=== PATIENT | female | born 1970 | race Caucasian/White ===

== ENCOUNTER → 2016-07-26 | Outpatient (CLI) | payer MEDICAID ==
[~2016-07-26] MED LIST: ADVIL DPS200 MG PO; ALBUTEROL2.5 MG/3 M IH; ASPIR-LOW81 MG PO; ASPIRIN EC81 MG PO; FUROSEMIDE80 MG PO; GABAPENTIN400 MG PO; KLONOPIN DPS1 MG PO; KLONOPIN2 MG PO; KLOR-CON M2020 MEQ PO; LAMICTAL DPS25 MG PO; LASIX DPS80 MG PO; MAALOX DPS30 ML PO; MAGNESIUM250 MG PO; MICRO-K DPS10 MEQ PO; MONTELUKAST SOD10 MG PO; NEURONTIN DPS300 MG PO; NORCO 5-325 TA1 EACH PO; PROAIR HFA8.5 GM IH; PROVENTIL HFA6.7 GM IH; REQUIP DPS0.5 MG PO; SINEQUAN DPS100 MG PO; SURFAK240 MG PO; SYMBICORT160 MCG/6 IH; SYNTHROID25 MCG PO; TOPAMAX50 MG PO; TYLENOL DPS325 MG PO; TYLENOL-DPS650 MG PR; TYLENOL325 MG PO; ZOFRAN ODT4 MG PO; ZOLOFT DPS100 MG PO; ZOLOFT100 MG PO
== END | disposition home or self-care (01) ==
LOC: RAD.S 09:30
DX: R05 Cough (principal); K21.9 Gastro-esophageal reflux disease without esophagitis

== ENCOUNTER 2016-07-29 14:21 | Emergency (ER) | payer MEDICAID ==
[~2016-07-29 14:21] MED LIST changes: -KLONOPIN DPS1 MG PO; -LAMICTAL DPS25 MG PO; -MONTELUKAST SOD10 MG PO; -REQUIP DPS0.5 MG PO
--- NOTE | 2016-08-05 16:05 | ER ---
ADMIT: 07/29/2016 RM/LOC: ER [facility] MR#: [id number] [address] [address] ACE JORDI [place], [place] [id number] Emergency Room Report SEX: F AGE: 46 : 1970 DATE: 07/29/2016 HISTORY OF PRESENT ILLNESS: The patient came in with the ambulance. Apparently, she fell, hit head at home in her bathroom. She comes in a bit lethargic. She says this is not a normal epilepsy attack. She has COPD as well but she does not think that is related to it. She is talking less but goes into a period where she is acting like she is not recognizing people. Her vitals within normal limits. Head, no trauma seen. Eyes exam is PERRLA. She even tries to resist me opening her eyes. Ears are patent. She is very slow and confused. Respirations, in no distress. She is an obese female. Abdomen nontender. Back nontender. Skin good color and atraumatic. ORDERS: CBC; white count of 10.7. Potassium of 3.3. UA negative. Toxicology negative. TSH 2.420. Labs are good. IV fluids improve her stay in the ER. I did order CT scan of the head which was read by Dr. Rodriguez as negative. I did order EKG but the patient left before the EKG could be done on her. CLINICAL IMPRESSION: Syncopal episode, in which patient did not have any arrhythmia while she was in the monitor here. When her mother walked out, she was able to communicate with us. Once mother comes in, she refers all her communication to the mother. She walked out of the ER. Her blood pressure at time of discharge was 130/86, heart rate 76, respirations 18, temp is 98.1, O2 sats 99% with Joe scale coma of 15. FLACA Taylor / Curt Maya MD / modl JOB #: [id number] CC: Curt Maya MD, Attending Physician UNKNOWN, Family Physician
[2016-09-27] MEDS ORDERED: REQUIP DPS0.5 MG PO ×2 (15:18)
[2016-09-27] MEDS ORDERED: LAMICTAL DPS25 MG PO (15:18)
[2016-09-27] MEDS ORDERED: KLONOPIN DPS1 MG PO (15:19)
[2016-09-27] MEDS ORDERED: MONTELUKAST SOD10 MG PO (15:21)
== END 2016-07-29 23:50 | disposition home or self-care (01) ==
LOC: ER 14:21
DX: R55 Syncope and collapse (principal); G40.909 Epilepsy, unspecified, not intractable, without status epilepticus; J44.9 Chronic obstructive pulmonary disease, unspecified; Z79.899 Other long term (current) drug therapy

== ENCOUNTER 2016-08-26 22:22 | Emergency (ER) | payer MEDICAID ==
--- NOTE | 2016-08-27 06:04 | ER ---
ADMIT: 08/26/2016 RM/LOC: ER [facility] MR#: [id number] [address] [address] ACE JORDI [place], [place] [address] Emergency Room Report SEX: F AGE: 46 : 1970 DATE: 08/26/2016 HISTORY OF PRESENT ILLNESS: The patient is a 46-year-old female with past medical history of fibromyalgia, asthma, COPD, allegedly, recently diagnosed with seizure disorder and is on Lamictal, and the patient states she is compliant with her medications. Per mother, she was called and could not reach the patient and could not contact and when called, paramedics told that the patient had a seizure-like activity in [facility]. There is no information about the trauma and the patient could not give any information about the duration of the seizure or any traumas. The patient per EMS was slightly confused when they got at scene. There is no more information. The patient also complains of chronic left knee pain and also chronic low back pain without any change from previous pains. The patient denies any pain in the head or neck or chest or abdomen. PHYSICAL EXAMINATION: GENERAL: The patient is alert, oriented to person, place, and time. VITAL SIGNS: Stable. The patient is obese and pupils are 3 mm, reactive to light bilaterally. Normal extraocular movement. CHEST: Clear to auscultation. HEART: Normal heart sounds. ABDOMEN: Soft. MUSCULOSKELETAL: The patient had no midline tenderness or step-offs in the spine. The patient had mild pain/tenderness in the right sacral area. The patient had normal range of motion in all extremities actively and passively. NEURO: Otherwise normal. The patient had another generalized seizure-like activity in the ER and received 2 mg of Ativan IV. Just maybe about 2 to 3 minutes after receiving Ativan, the patient began talking and had no postictal, which puts pseudoseizure at one of our differentials also. The patient was observed. X- ray of the pelvic did not show any abnormalities. Left knee x-ray did not show any fracture or dislocation or any new changes. The patient states she wants to go home to get her daily Lamictal. The patient has close followup with the primary doctor. The patient is stable to go home and have follow up with the primary doctor as needed. Yehuda Enamorado MD/ lalo JOB #: [id number] CC: Yehuda Enamorado MD, Attending Physician Barry Stark MD, Family Physician
[2016-09-27] MEDS ORDERED: REQUIP DPS0.5 MG PO ×2 (15:18)
[2016-09-27] MEDS ORDERED: LAMICTAL DPS25 MG PO (15:18)
[2016-09-27] MEDS ORDERED: KLONOPIN DPS1 MG PO (15:19)
[2016-09-27] MEDS ORDERED: MONTELUKAST SOD10 MG PO (15:21)
== END 2016-08-27 00:46 | disposition home or self-care (01) ==
LOC: ER 22:22
DX: G40.909 Epilepsy, unspecified, not intractable, without status epilepticus (principal); G89.29 Other chronic pain; M25.562 Pain in left knee; M54.5 Low back pain; J44.9 Chronic obstructive pulmonary disease, unspecified; J45.909 Unspecified asthma, uncomplicated; Z90.710 Acquired absence of both cervix and uterus; Z98.890 Other specified postprocedural states; Z79.899 Other long term (current) drug therapy; Z88.0 Allergy status to penicillin

== ENCOUNTER 2016-09-01 00:22 | Emergency (ER) | payer MEDICAID ==
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
[2016-09-27] MEDS ORDERED: LAMICTAL DPS25 MG PO (15:18)
[2016-09-27] MEDS ORDERED: REQUIP DPS0.5 MG PO ×2 (15:18)
[2016-09-27] MEDS ORDERED: KLONOPIN DPS1 MG PO (15:19)
[2016-09-27] MEDS ORDERED: MONTELUKAST SOD10 MG PO (15:21)
== END 2016-09-01 02:55 | disposition home or self-care (01) ==
LOC: ER 00:22
DX: E03.9 Hypothyroidism, unspecified (principal); R42 Dizziness and giddiness; F32.9 Major depressive disorder, single episode, unspecified; Z88.0 Allergy status to penicillin; Z88.1 Allergy status to other antibiotic agents; Z79.899 Other long term (current) drug therapy

== ENCOUNTER 2016-09-16 16:12 | Emergency (ER) | payer MEDICAID ==
--- NOTE | 2016-09-21 16:04 | ER ---
ADMIT: 09/16/2016 RM/LOC: ER [facility] MR#: [id number] [address] [address] JORDI [place]O [place], [place] [address] Emergency Room Report SEX: F AGE: 46 : 1970 DATE: 09/16/2016 ADDENDUM: This is a 46-year-old white female, who evidently was in court and had some type of seizure like activity. She has a history of pseudoseizures, but also is being treated for seizures as well, so she has seen a neurologist. At this time, she has been taking her medicines. She has medication, I do not think anything needs to be adjusted at this time. Also, hypothyroidism, depression as well. At this time, we are going to be able to discharge her. She should follow up with her neurologist, I think he in [place], Dr. Stark, for her thyroid. Also, has advised her not to drive until these are controlled and her diagnosis is specified. CONDITION ON DISCHARGE: Good. Curt Maya MD/ lalo JOB #: [id number] CC: Curt Maya MD, Attending Physician
[2016-09-27] MEDS ORDERED: LAMICTAL DPS25 MG PO (15:18)
[2016-09-27] MEDS ORDERED: REQUIP DPS0.5 MG PO ×2 (15:18)
[2016-09-27] MEDS ORDERED: KLONOPIN DPS1 MG PO (15:19)
[2016-09-27] MEDS ORDERED: MONTELUKAST SOD10 MG PO (15:21)
== END 2016-09-16 17:15 | disposition home or self-care (01) ==
LOC: ER 16:12
DX: G40.409 Other generalized epilepsy and epileptic syndromes, not intractable, without status epilepticus (principal); E03.9 Hypothyroidism, unspecified; F32.9 Major depressive disorder, single episode, unspecified; J44.9 Chronic obstructive pulmonary disease, unspecified; Z90.49 Acquired absence of other specified parts of digestive tract; Z90.710 Acquired absence of both cervix and uterus; Z88.0 Allergy status to penicillin

== ENCOUNTER 2016-09-26 00:31 | Observation (INO) | payer MEDICAID ==
[~2016-09-26] VITALS: Ht 165.1 cm; Wt 154.7 kg
--- NOTE | 2016-09-26 19:46 | ER ---
ADMIT: 09/26/2016 RM/LOC: 520 [facility] MR#: [id number] [address] [address] [place]I [place], [place] [address] Emergency Room Report SEX: F AGE: 46 : 1970 DATE: 09/26/2016 CHIEF COMPLAINT: Seizure. HISTORY OF PRESENT ILLNESS: The patient is a 46-year-old female, well known to this physician and institution due to multiple evaluations for seizures and pseudoseizures. Patient was here with her . Took her evening medicines, went to the bathroom, had vasovagal episode associated with tonic- clonic seizure lasting several seconds, witnessed by this physician and other medical personnel. No incontinence or buccal injury. The patient was placed on backboard with cervical precautions, transported to Trauma Room, where she was evaluated, found to be postictal. Given Ativan 1 mg IV push and Keppra loaded with no further seizures. PAST MEDICAL HISTORY: ILLNESSES: Depression, anxiety, fibromyalgia, restless legs syndrome, pseudoseizures and seizures, DJD, hypothyroidism, asthma, kidney stones. OPERATIONS: Left knee clip and clean out. Right ankle fracture with ORIF. Cholecystectomy, hysterectomy. ALLERGIES: KEFLEX, PENICILLIN, CLINDAMYCIN, QUINOLONES, ERYTHROMYCIN. MEDICATIONS: Please see nurse's MAR. SOCIAL HISTORY: , nonsmoker, nondrinker, no illicit drugs. FAMILY HISTORY: Negative per chart review. REVIEW OF SYSTEMS: A 12-point review of systems negative for all other systems, illnesses, or operations except as outlined above. PHYSICAL EXAMINATION: VITAL SIGNS: Temp 96.3, pulse 92, respirations 20, BP 129/85, SaO2 of 100% on room air. GENERAL: Normocephalic. No evidence of epistaxis, rhinorrhea, or otorrhea. NECK: Supple without meningismus. CHEST: Clear. Breath sounds equal. HEART: Regular rate and rhythm without murmur, gallop, or edema. ABDOMEN: Obese, nontender, nondistended. Bowel sounds hypoactive. EXTREMITIES: Right postop boot noted. Neurovascular and skin intact. NEURO: EOMI. PERRLA. Two-person assist to ambulate due to unsteady gait. MEDICAL DECISION MAKING: The patient was given Ativan and Keppra, her home Requip and clonazepam. Unable to ambulate after observation for 2 hours due to dizziness. Discussed case with Dr. Hedrick and Dr. Ramos. Dr. Ramos did give orders to nursing staff. ADMIT: 09/26/2016 RM/LOC: 520 [facility] MR#: [id number] [address] [place] [address] ACE JORDI Kaylan [address] [place] [address] Emergency Room Report SEX: F AGE: 46 : 1970 DIAGNOSES: 1. Seizure versus pseudoseizure. 2. Fibromyalgia. 3. Right ankle fracture open reduction and internal fixation. RECOMMENDATION: Admit observation to Med-Surg for Dr. Ramos. ADMISSION/DISCHARGE CONDITION: Stable. Patient is a full code. Yahir Novak MD/ kaylynl JOB #: [id number] CC: Edis Hedrick MD, Attending Physician Edis Hedrick MD, Family Physician Baryr Stark MD
[2016-09-27] MEDS ORDERED: REQUIP DPS0.5 MG PO ×2 (15:18)
[2016-09-27] MEDS ORDERED: LAMICTAL DPS25 MG PO (15:18)
[2016-09-27] MEDS ORDERED: KLONOPIN DPS1 MG PO (15:19)
[2016-09-27] MEDS ORDERED: MONTELUKAST SOD10 MG PO (15:21)
--- NOTE | 2016-09-30 19:02 | HP ---
ADMIT: 09/26/2016 RM/LOC: 520 [facility] MR#: [id number] [address] [address] [place], [place] [address] History and Physical SEX: F AGE: 46 : 1970 DATE OF SERVICE: CHIEF COMPLAINT: Seizure. HISTORY OF PRESENT ILLNESS: This is a 46-year-old female with a past medical history significant for pseudoseizures, fibromyalgia, depression, restless legs syndrome, and hypothyroidism, who was admitted with concern for seizure. Apparently, Desiree was in the ER late last night with her who is being seen for shoulder hematoma. She began feeling nauseated and so she went to the bathroom. She states that she vomited and then had a seizure and passed out. Her said that they heard her fall and so the nurses went in to help her. When they got in there they did note that she was conscious and not incontinent of either bowel or bladder. She did not have any postictal state. She then complained of severe bilateral lower extremity pain that seemed to be associated with her restless legs syndrome. They gave her oral Requip and clonazepam as well as Toradol down there in the ER but pain continued, so they went ahead and ordered x-rays of both lower extremities, both feet, as well as her pelvis, and her shoulder. X-rays were negative for any acute fracture, but there was noted to be pins in her right ankle from a past ankle ORIF. They did a trial down in the ER to see if she is steady and able to go home, but she just seemed too weak and off balance and so the ER thought that she needed to be admitted. The patient was also given a loading dose of Keppra down in the ER. The patient states that she was seeing Dr. Delacruz, who took her off most of her seizure medicines because he said that her seizures were actually pseudoseizures. Her last seizure was 9 months ago and the only medicine that she had been on for that was Topamax. She states that Dr. Calderon her psychiatrist and Dr. Stark her PCP in [place] recently stopped her Topamax because she was complaining of some hair loss. This medicine was stopped about a month to two months ago. At that time, they also increased her Lamictal. Since that time, she states that when she takes her Lamictal she becomes very nauseous and vomits and then passes out. Last night was the first seizure that she said that she has had and seems it has to do with the fact that her Topamax has been stopped. She is set up to see a new neurologist in [place] next month since Dr. Delacruz is leaving. Currently, denying any pain. She states that this morning she was feeling pretty sleepy, but otherwise is back to normal. No headache or vision changes. PAST MEDICAL HISTORY: 1. Seizures. 2. Pseudoseizures. 3. Fibromyalgia. 4. Depression. 5. DJD. 6. History of kidney stones. 7. Restless legs syndrome. 8. Hypothyroidism. 9. Asthma. 10.Chronic pain. ADMIT: 09/26/2016 RM/LOC: 520 [facility] MR#: [id number] [address] [place] [id number] DESIREE BELLO [address] [place] [address] History and Physical SEX: F AGE: 46 : 1970 PAST SURGICAL HISTORY: 1. ORIF of the right ankle. 2. Left knee scope. 3. Cholecystectomy. 4. Hysterectomy. MEDICATIONS: 1. Lamotrigine 50 mg b.i.d. 2. Ropinirole 1.5 mg at bedtime. 3. Ropinirole 0.5 mg every day. 4. Clonazepam 1 mg daily. 5. Clonazepam 2 mg at bedtime. 6. Furosemide 80 mg daily as needed. 7. Montelukast 10 mg daily. 8. Levothyroxine 25 mcg daily. 9. Proventil inhaler two puffs as needed. ALLERGIES: CEPHALOSPORINS, MACROLIDES, FLUOROQUINOLONES, PENICILLIN, ERYTHROMYCIN, AND KEFLEX. SOCIAL HISTORY: She denies tobacco, alcohol, or illegal drug use. She does live at home. FAMILY HISTORY: Significant for mom with hypertension and brother with brain cancer. REVIEW OF SYSTEMS: A 10-point review of systems was reviewed and negative other than that stated above in the HPI. PHYSICAL EXAMINATION: VITAL SIGNS: Blood pressure 99/59, pulse 85, respirations 18, temp 96.5, saturating 92% on room air. GENERAL: She is sleepy but arousable and able to answer questions. She is oriented x3. HEART: Regular rate and rhythm. No murmurs. LUNGS: Clear. ABDOMEN: Obese, soft, nontender, nondistended. Positive bowel sounds. EXTREMITIES: No edema. LABORATORY DATA: Sodium 141, potassium 3.9, creatinine 0.8. White count 8.2, hemoglobin 11.5, platelets 145. Urine drug screen was negative. X-rays were all reviewed. ASSESSMENT AND PLAN: 1. Pseudoseizures versus seizures. She is currently back to her baseline. Again, she was given a Keppra loading dose in the ER. I will go ahead and restart her Topamax since the seizure seemed to have come back now ADMIT: 09/26/2016 RM/LOC: 520 [facility] MR#: [id number] [address] [place] [phone] DESIREE BELLO [address] [place] [address] History and Physical SEX: F AGE: 46 : 1970 that she is off the Topamax. She does need to keep her appointment with her neurologist in [place], and I encouraged her to call and see if she can get in sooner than next month. 2. Restless legs syndrome. Continue her home medications. 3. Fibromyalgia. 4. Depression. 5. Hypothyroidism. 6. Asthma. We will have physical therapy and occupational therapy see her today and evaluate her to make sure she is safe to be at home. If she does well today, she can likely discharge to home this afternoon with her Neuro followup as well as follow up with her PCP. Cristine Ramos DO Resident / Edis Hedrick MD / lalo JOB #: [id number] CC: Edis Hedrick MD, Attending Physician Edis Hedrick MD, Family Physician
== END 2016-09-26 11:36 | disposition home or self-care (01) ==
LOC: ER 00:31 → 5MS 03:20
PROVIDERS: ADMIT Family Medicine
DX: R56.9 Unspecified convulsions (principal); F32.9 Major depressive disorder, single episode, unspecified; M79.7 Fibromyalgia; E03.9 Hypothyroidism, unspecified; J45.909 Unspecified asthma, uncomplicated; G25.81 Restless legs syndrome; G89.29 Other chronic pain; Z90.710 Acquired absence of both cervix and uterus; Z90.49 Acquired absence of other specified parts of digestive tract; Z79.899 Other long term (current) drug therapy; Z88.1 Allergy status to other antibiotic agents; Z88.0 Allergy status to penicillin; Z98.890 Other specified postprocedural states